=== PATIENT | male | born 1980 | race Caucasian/White ===

== ENCOUNTER 2019-11-28 18:49 | Inpatient (IN) | payer OTHER ==
[2019-11-28] VITALS (70 sets, daily range): BP systolic 158–172; BP diastolic 100–117; PULSE 76–78; TEMP 97.9–98.3; O2SAT 94–100
[~2019-11-28] VITALS: Ht 177.8 cm; Wt 130.2 kg
[~2019-11-28 18:49] MED LIST: ALDACTONE 25MG25 M1 PO; AZO-STANDARD95 MG PO; COREG 25MG25 MG/TAB PO; DEMADEX 20MG20 M1 PO; DESENEX21 TP; K-DUR20 MEQ PO; LASIX 20MG TABL20 MG PO; NORCO 325 MG-51 TAB PO; NORMODYNE200 MG PO; PROAIR HFA0.09 MG/AC IH; TYLENOL 8 HR PO; ZESTRIL 20MG TA20 MG PO
[2019-11-28 19:36] LABS: EOS # 0.1 (0.0-0.7); EOS % 3.4 % (0-4.0); GRAN % 72.1 % (42.2-75.2); HEMATOCRIT 41.3 % (42.0-52.0); HEMOGLOBIN 13.1 g/dl (13.5-18.0); LYMPH # 0.6 (1.2-3.4); LYMPH % 13.7 % (20.0-51.0); MEAN CELL VOLUME 88 fl (80.0-100.0); MEAN CORPUSCULAR HEMOGLOBIN 28 pg (27.0-31.0); MEAN CORPUSCULAR HGB CONC 32 g/dl (33.0-37.0); MEAN PLATELET VOLUME 10.2 fl (7.4-10.4); MONO # 0.4 (0.1-0.6); MONO % 9.6 % (1.7-9.3); PLATELET COUNT 202 K/mm3 (130-400); RED BLOOD COUNT 4.69 M/mm3 (4.20-5.60)
[2019-11-28 20:00] LABS: ALBUMIN 3.2 gm/dL (3.5-5.0); C-REACTIVE PROTEIN 1.5 mg/dL (0.0-0.9); CALCIUM 8.5 mg/dL (8.4-10.2); CREATININE, serum 2.49 (0.66-1.25); POTASSIUM 3.4 mmol/L (3.4-5.0); TOTAL PROTEIN 6.7 gm/dL (6.4-8.2)
[2019-11-28 20:17] LABS: COLLECTION METHOD CLEAN CATCH
[2019-11-28 20:25] LABS: TROPONIN-I 0.102 ng/mL (0.000-0.035)
[2019-11-28 20:26] LABS: MUCOUS Present /lpf; PH 6 (5-8); SQUAMOUS EPITHELIAL 0-2 /hpf; URINE APPEARANCE Clear; URINE BACTERIA Rare /hpf; URINE BILIRUBIN Negative (NEGATIVE); URINE BLOOD 3+ (NEGATIVE); URINE COLOR Yellow; URINE GLUCOSE 1+ (NEGATIVE); URINE KETONE Negative (NEGATIVE); URINE LEUKOCYTE ESTERASE Negative (NEGATIVE); URINE NITRATE Negative (NEGATIVE); URINE PROTEIN(semi-quant) 2+ (NEGATIVE); URINE RBC >50 /hpf; URINE UROBILINOGEN Negative (NEGATIVE)
--- NOTE | 2019-11-28 21:52 | NUR ---
Patient arrives to [facility] room 16 via ED stretcher. Patient ambulates well with SBA to [facility] bed using his cane. Initial BP 172/117 with HR of 75; other vitals within normal limits. Patient denies any chest pain or SOB; however, he reports 9/10 back pain, of which he experiences on a chronic basis. Patient arrives with Nitro infusing to the left forearm at 30 mcg/min (9mL/hr). Bilateral lower extremeties are edematous although pedal and post tibial pulses are 2+. Spots of red discoloration noted throughout legs and abdomen. A scratch is noted to the upper right back/shoulder area. Patient is unable to lift chin above a 50-60 degree angle; he reports having slept wrong several weeks ago and has been unable to lift head adequately since. A curvature/lump noted on the back of neck; no discoloration or irritation noted. Belinda aware of patient's arrival. Will continue to monitor.
[2019-11-28] MEDS ORDERED: TYLENOL 325MG325 MG PO (22:28)
[2019-11-28] MEDS ORDERED: TYLENOL 8 HR PO (22:30)
[2019-11-28] MEDS ORDERED: ALEVE 220MG220 MG PO (22:31)
[2019-11-28] MEDS ORDERED: ASPIRIN 32325 MG/TAB PO (22:34)
[2019-11-28 23:10] LABS: MAGNESIUM 2.3 mg/dL (1.6-2.3); PHOSPHOROUS 4.7 mg/dL (2.5-4.5)
--- NOTE | 2019-11-28 23:15 | NUR ---
Notified Dr. Nguyen of patient's bumped troponin. Will not continue to trend troponins per his directions. Will continue to monitor.
[2019-11-28 23:41] LABS: THYROID STIMULATING HORMONE 2.77 uIU/mL (0.465-4.680)
[2019-11-29] VITALS (87 sets, daily range): BP systolic 145–172; BP diastolic 99–171; PULSE 28–78; TEMP 97.1–97.9; O2SAT 90–100
--- NOTE | 2019-11-29 05:30 | NUR ---
Notified Belinda of patient's complaints of nausea and two episodes of vomiting. Phenergan ordered. Will continue to monitor.
--- NOTE | 2019-11-29 06:02 | NUR ---
Spoke with Belinda following patient's morning EKG. Significant changes noted in EKG; she notified Patrick, who requested we trend troponins. Lab notified.
[2019-11-29 06:41] LABS: BASO % 0.8 % (0.0-2.0); EOS # 0.2 (0.0-0.7); EOS % 4.3 % (0-4.0); GRAN # 2.7 (1.4-6.5); HEMATOCRIT 36.6 % (42.0-52.0); HEMOGLOBIN 11.6 g/dl (13.5-18.0); LYMPH # 0.5 (1.2-3.4); LYMPH % 14.2 % (20.0-51.0); MEAN CELL VOLUME 88 fl (80.0-100.0); MEAN CORPUSCULAR HEMOGLOBIN 28 pg (27.0-31.0); MEAN CORPUSCULAR HGB CONC 32 g/dl (33.0-37.0); MEAN PLATELET VOLUME 10.3 fl (7.4-10.4); MONO # 0.4 (0.1-0.6); MONO % 9.4 % (1.7-9.3); PLATELET COUNT 194 K/mm3 (130-400); RED BLOOD COUNT 4.18 M/mm3 (4.20-5.60); REDCELL DISTRIBUTION WIDTH-CV 15.9 % (11.5-14.5)
[2019-11-29 07:01] LABS: CALCIUM 8.2 mg/dL (8.4-10.2); CHOLESTEROL RISK RATIO 3.4; CREATININE, serum 2.55 (0.66-1.25); POTASSIUM 3.1 mmol/L (3.4-5.0)
[2019-11-29 07:19] LABS: TROPONIN-I 0.108 ng/mL (0.000-0.035)
--- NOTE | 2019-11-29 09:29 | NUR ---
Pt assessment complete. Pt is sitting up in bed sleeping, keeps his eyes closed during examination and does not speak to staff at this time. VSS. Pt does not appear to be in any distress, breathing is even and unlabored on RA. Nitro drip infusing without complications. No needs at this time. Call light within reach. Isolation precautions in place for MRSA, lab confirmed positive MRSA swab on the phone.
--- NOTE | 2019-11-29 11:51 | NUR ---
Pt refusing to wake up to take pills. Will arouse but not open eyes and says "just a minute". Follows commands such as lifting leg and squeezing hands but will not arouse to speak with staff or take medications. Will reattempt at later time.
--- NOTE | 2019-11-29 14:20 | NUR ---
Pt agreed to take pills, reports LINDSAY. Tylenol PRN administered.
[2019-11-29 15:07] LABS: URINE PROTEIN:CREAT RATIO 1.63 (0.00-0.14)
--- NOTE | 2019-11-29 16:13 | NUR ---
MITZI met at the patient's door to discuss discharge plan. The patient did not have access to room phone and is on MRSA precautions. The patient lives alone in [place]. He reports independence with ADLs and has a cane. The patient does not have a PCP or health insurance. The patient was agreeable to getting set up at the [facility] in [place]. He receives his medications at [facility] in [place]. He reports that he was recently approved for disability and will get $900 a month, starting this month. He reports that he will not have difficulties affording meds now. Financial Counseling has been consulted and plan to do a Medicaid application with him. The patient does not have advanced directives completed. He is not and does not have any children. He states that his mother is his next of kin. His mother, Hagn, lives at [facility]. He states that his father and only sibling have . The patient plans to return home upon discharge. MITZI to set the patient up with an appointment at [facility] in [place] and will need to jauregui his meds prior to discharge. MITZI to continue to follow.
--- NOTE | 2019-11-29 18:30 | NUR ---
Pt's SBP 150's, and patient complaining of persistent LINDSAY. Nitro drip decreased to 9mls/hr. POC discussed with patient. Will continue to monitor.
--- NOTE | 2019-11-29 19:05 | NUR ---
RECEIVED REPORT FROM DEREK WOOD. PT REQUESTING TO USE RESTROOM AT THIS TIME. PT ABLE TO AMBUALTE INDEPENDENTLY WITH CANE TO TOILET. STEADY GAIT NOTED. VSS.
--- NOTE | 2019-11-29 22:44 | NUR ---
AFTER ATTEMPTS TO HELP MAKE PT COMFORTABLE, PT CONTINUES TO C/O CHEST PAIN THAT IS "CRUSHING AND IS HARD TO BREATHE" AND POINTS TO HIS MID STERNAL CHEST AREA. BP NOTED TO BE 168/126. HR IN THE 80s, POX 95% ON RA. DR MCADAMS NOTIFIED OF ATTEMPTS TO HELP CALM PT FOR POSSIBEL ANXIETY BUT PT IS COMPLAINING OF MORE CHEST DISCOMFORT THAT IS A CRUSHING FEELING AND CURRENT VS. DR MCADAMS STATES THAT AN EKG NEEDS TO BE OBTAINED AND TO CONTACT ATTENDING PHYSICIAN IF THIS IS NOT CARDIAC RELATED. RT CALLED TO BEDSIDE TO OBTAIN EKG. PT IS NOW SITTING ON THE SIDE OF THE BED AND IS REQUESTED TO LIE BACK IN BED FOR BETTER POSITIONING OF PROCEDURE. PT BECOMES AGGRESSIVE AND YELLS AT RN AND RT LUIS TO "GET THE FUCK OUT. IF YOU WON'T JUST LEAVE ME BE THEN I WILL WALK THE FUCK OUT OF HERE." PT PULLS OFF TELEMTRY LEADS AND BLOOD PRESSURE MONITOR. ATTEMPTS MADE TO CALM PT, UNSUCCESSFUL, CALLED POLITICAL RESEARCHER TO BEDSIDE, SEE NOTE. STAFF WALKS AWAY FROM PT TO LET HIM COOL DOWN AND SINCE HE IS BEING AGGRESSIVE AND REFUSING TREATMENT AFTER MULTIPLE ATTEMPTS BY RN AND POLITICAL RESEARCHER EXPLAINING THE IMPORTANCE OF DELAYING TREATMENT IF HE WAS TRULY HAVING A CARDIAC EVENT. PT DID NOT CARE AND YELLED TO BE LEFT ALONE.
--- NOTE | 2019-11-29 22:53 | NUR ---
Called into room by DEREK Morrow, as patient is stating he is "having pressure on his chest and he can't breath." Discussed with patient importance of laying back in bed so we could obtain an EKG to evaluate his cardiac function and if he was having a heart attack. Patient stated loudly "to back the fuck off, I don't need this!" Informed patient of risks of delaying treatment, patient declining all diagnostics and care at this time. Patient stated he understood risk and did not want anything further at this time. Will have Odalys continue to monitor.
--- NOTE | 2019-11-29 23:15 | NUR ---
RN OVER HEARS PT CALL MOTHER'S DETENTION STAFF TO TELL THEM TO HAVE HIS MOTHER NOT CALL HIM ANYMORE UNLESS HE CALLS HER AND THAT SHE IS COMING HIM TO HAVE A PANIC ATTACK. AFTER PT GETS OFF OF THE PHONE REQUESTS TO SEE RN. PT STATES HE IS WILLING TO LIE BACK IN BED AND PUT TELEMTRY BACK ON AND HAVE EKG DONE. RTLUIS NOTIFIED AND EKG OBTAINED. NOTED NO CHANGES SINCE EKG THIS AM. AT 2330, NILSA MCCONNELL NOTIFIED OF SITUATION AND WHAT RN WAS TOLD BY DR MCADAMS. NILSA MCCONNELL AGREES THAT THIS MAY BE ANXIETY RELATED AFTER GUT DROPPER HAS ALREADY BEEN MADE AWARE, SEE MAR FOR NEW ORDERS OF MEDICATION GIVEN. PT APPEARS CALMER NOW AND IS COOPERATIVE WITH CARE. PT IS APOLOGETIC TO RN AND RT STAFF. VSS. PT STATES HIS CHEST DISCOMFORT HAS SUBSIDED AT THIS TIME. WILL CONTINUE TO MONITOR CLOSELY. CALL LIGHT WITHIN REACH.
[2019-11-30] VITALS (24 sets, daily range): BP systolic 147–228; BP diastolic 77–153; PULSE 70–92; TEMP 97.5–98.5
--- NOTE | 2019-11-30 00:05 | NUR ---
DR DIXON CALLS RN BACK AND NOTIFIED OF NO CHANGE IN EKG AND CURRENT VS. PHYSICIAN STATES APPEARS PT IS STABLE NOW AND TO CONTINUE TO MONITOR CLOSELY.
--- NOTE | 2019-11-30 00:51 | NUR ---
THIS RT WAS CALLED BY DEREK ROMERO TO DO AN EKG ON PT BECAUSE THEY WERE HAD A CRUSHING FEELING IN THEIR CHEST. HOWEVER, PT WAS AGITATED AND DID NOT WANT ANYONE TO DO ANY TESTS ON HIM AT THIS TIME. THEREFORE THIS RT DID NOT PERFORM THE EKG AT THE TIME IT WAS ORDERED 2243, EKG WAS DONE AT 2314 ONCE PT WAS WILLING TO COOPERATE
--- NOTE | 2019-11-30 03:40 | NUR ---
PT CALLS RN TO BEDSIDE AND STATES HE FEELS VERY NAUSEOUS, PT STARTS DRY HEAVING AND SPITTING UP SOME. SEE MAR. PT ABLE TO CALM SELF AFTER A FEW MINUTES. VSS. CALL LIGHT WITHIN REACH.
--- NOTE | 2019-11-30 06:17 | NUR ---
LAB AND RN TO BEDSIDE TO WAKE PT UP TO GET MORNING LAB DRAWN. RN MAKES MULTIPLE ATTEMPTS TO TRY AND WAKE PT UP BY TOUCHING HIS ARM LIGHTLY AND TALKING LOUDLY TO GET HIM TO OPEN HIS EYES. PT DOES NOT MOVE MUCH BESIDES MOAN OCCASSIONALY. INFORMED PT IF HE DOES NOT OPEN HIS EYES PRESSURE POINTS WILL BE CHECKED. FINGER NAIL PRESSURE APPLIED. PT COMES OUT OF BED SWINGING ARMS AND SCREAMING AT NURSE. RN INFORMS PT THAT R/T HIS PRESSURES GETTING SO HIGH EARLIER, HE NEEDS TO RESPOND TO THE NURSE TO CHECK NEURO STATUS IN CASE OF A STROKE. PT STATES "DON'T WAKE ME UP ABRUPTLY. JUST LET ME HAVE A STROKE." PT REFUSES LABS TO BE DRAWN AT THIS TIME. PULLS HIS BLANKETS UP AND YELLS AT THE NURSE AND BUDDER TO GET OUT. CALL LIGHT WITHIN REACH.
--- NOTE | 2019-11-30 07:30 | NUR ---
ANNMARIE Mcgee called regarding elevated: BP and Nitro. gtt infusing near maximum dose; nausea and vomiting; refusal of morning lab draw; anxiety; refusal to wear SpO2 monitoring and occasional refusal to wear BP cuff.
--- NOTE | 2019-11-30 08:00 | NUR ---
DONNA Mcgee in room with pt
--- NOTE | 2019-11-30 08:45 | NUR ---
Pt taken to Radiology dept for Head CT - once in room pt refusing to get fully positioned CT Bed. Pt states "I need to be sedated completely before I am getting in there, there is no way. At this point I would rather just than keep doing all these test you all want". MD Mirna notified and on unit upon arrival back to [facility]. Lacquerer in room to perform renal ultrasound - pt refused - stating "I wont be able to lay flat" MD Mirna on still and notified
--- NOTE | 2019-11-30 10:30 | NUR ---
Breakfast Hostess unable and unwilling to perform venipuncture sucessfully d/t pt jumping upon needle insertion - pt educated regarding saftey of staff members with sharps and that labs will not be able to completed if pt's actions pose a risk to staff. Pt demonstrating exasperation but agrees and willing to try again with different admin secretary.
--- NOTE | 2019-11-30 11:00 | NUR ---
Loan Operations Manager able to sucessfully obtain blood sample without difficulties
--- NOTE | 2019-11-30 11:12 | NUR ---
MITZI contacted Kayla at [facility] and secured the patient and appointment on Tuesday, 12/04, at 1520. MITZI faxed the patient's records to Kayla at [facility] in [place]. MITZI to inform the patient's RN of appointment. MITZI to continue to follow.
[2019-11-30 11:14] LABS: BASO # 0.1 (0.0-0.2); BASO % 0.9 % (0.0-2.0); EOS # 0.2 (0.0-0.7); EOS % 3.1 % (0-4.0); GRAN # 4.7 (1.4-6.5); GRAN % 79.9 % (42.2-75.2); HEMATOCRIT 39.8 % (42.0-52.0); HEMOGLOBIN 12.7 g/dl (13.5-18.0); LYMPH # 0.5 (1.2-3.4); LYMPH % 8.8 % (20.0-51.0); MEAN CELL VOLUME 88 fl (80.0-100.0); MEAN CORPUSCULAR HEMOGLOBIN 28 pg (27.0-31.0); MEAN CORPUSCULAR HGB CONC 32 g/dl (33.0-37.0); MEAN PLATELET VOLUME 10.7 fl (7.4-10.4); MONO # 0.4 (0.1-0.6); PLATELET COUNT 253 K/mm3 (130-400); RED BLOOD COUNT 4.55 M/mm3 (4.20-5.60); REDCELL DISTRIBUTION WIDTH-CV 15.9 % (11.5-14.5)
[2019-11-30 11:17] LABS: CALCIUM 8.3 mg/dL (8.4-10.2); CREATININE, serum 2.58 (0.66-1.25); POTASSIUM 3.3 mmol/L (3.4-5.0)
--- NOTE | 2019-11-30 22:36 | NUR ---
BP CUFF AT FOREARM, THIS RN OFFERED TO RAPLACE IT WITH BIGGER CUFF TO BE PUT ON UPPER ARM IT IS MORE ACCURATE, PT REFUSED AND VERBALIZED "DOCTOR ALREADY SAID THAT THIS IS BETTER." PT THEN WANTED TO BE LEFT ALONE TO SLEEP.
[2019-12-01] VITALS (12 sets, daily range): BP systolic 157–214; BP diastolic 77–127; PULSE 77–90; TEMP 97.8–98.5; O2SAT 97
--- NOTE | 2019-12-01 00:28 | NUR ---
pt requesting some imodium as he had bm 2x for this shift. as per pt, it was watery and loose. this RN has not personally seen it as pt flushed it already. ANNMARIE Trevino notified and orders for stool sample to be checked for c diff.
--- NOTE | 2019-12-01 01:46 | NUR ---
this RN heard a loud noise while charting outside of room 16. As I check pt on room, pt about to go to toilet and was asked if he is okay, pt replied "I just don't care about that stupid damn hat!" when explained while we need the stool sample pt verbalized "I don't care!" and was pretty agitated and this RN closed pt's door to give some privacy to pt.
[2019-12-01 07:08] LABS: BASO % 0.6 % (0.0-2.0); EOS # 0.4 (0.0-0.7); EOS % 5.4 % (0-4.0); GRAN # 4.7 (1.4-6.5); GRAN % 72.6 % (42.2-75.2); HEMOGLOBIN 12.9 g/dl (13.5-18.0); LYMPH # 0.7 (1.2-3.4); LYMPH % 10.5 % (20.0-51.0); MEAN CELL VOLUME 87 fl (80.0-100.0); MEAN CORPUSCULAR HEMOGLOBIN 28 pg (27.0-31.0); MEAN CORPUSCULAR HGB CONC 32 g/dl (33.0-37.0); MEAN PLATELET VOLUME 10.6 fl (7.4-10.4); MONO # 0.7 (0.1-0.6); MONO % 10.6 % (1.7-9.3); PLATELET COUNT 284 K/mm3 (130-400); RED BLOOD COUNT 4.58 M/mm3 (4.20-5.60); REDCELL DISTRIBUTION WIDTH-CV 16.1 % (11.5-14.5)
[2019-12-01 07:19] LABS: CALCIUM 8.6 mg/dL (8.4-10.2); CREATININE, serum 2.58 (0.66-1.25); POTASSIUM 3.6 mmol/L (3.4-5.0)
--- NOTE | 2019-12-01 07:27 | NUR ---
REPORT GIVEN TO DEREK BILLS.
[2019-12-02] VITALS (25 sets, daily range): BP systolic 138–193; BP diastolic 85–121; PULSE 76–98; TEMP 97.7–99.1
--- NOTE | 2019-12-02 05:26 | NUR ---
PT'S BP AT HAVE JD MOSTLY AT 170'S - 180'S. THERE ARE COUPLE OCCASIONS THAT IT WAS 190'S, PRN HYDRALAZINE GIVEN WITH GOOD RESPONSE LOWERING BP AT 160'S, BUT OVERTIME, WILL SLOWLY GET BACK TO 180-190'S. PT ON MAX NITRO AT 100 MCG/MIN FOR THIS ENTIRE SHIFT. WILL PASS THIS ALONG TO DAY SHIFT NURSE.
[2019-12-02 06:30] LABS: BASO % 0.6 % (0.0-2.0); EOS # 0.4 (0.0-0.7); EOS % 6.2 % (0-4.0); GRAN # 4.8 (1.4-6.5); GRAN % 72.1 % (42.2-75.2); HEMOGLOBIN 12.4 g/dl (13.5-18.0); LYMPH # 0.6 (1.2-3.4); LYMPH % 8.7 % (20.0-51.0); MEAN CELL VOLUME 87 fl (80.0-100.0); MEAN CORPUSCULAR HEMOGLOBIN 28 pg (27.0-31.0); MEAN CORPUSCULAR HGB CONC 32 g/dl (33.0-37.0); MEAN PLATELET VOLUME 10.6 fl (7.4-10.4); MONO # 0.8 (0.1-0.6); MONO % 12.2 % (1.7-9.3); PLATELET COUNT 268 K/mm3 (130-400); RED BLOOD COUNT 4.47 M/mm3 (4.20-5.60); REDCELL DISTRIBUTION WIDTH-CV 16.2 % (11.5-14.5)
[2019-12-02 06:48] LABS: ALBUMIN 3.1 gm/dL (3.5-5.0); BILIRUBIN,TOTAL 1.7 mg/dL (0.0-1.0); CALCIUM 8.4 mg/dL (8.4-10.2); CREATININE, serum 2.13 (0.66-1.25); POTASSIUM 3.6 mmol/L (3.4-5.0); TOTAL PROTEIN 6.6 gm/dL (6.4-8.2)
--- NOTE | 2019-12-02 07:29 | NUR ---
REPORT GIVENT TO DEREK MOSS.
--- NOTE | 2019-12-02 16:00 | NUR ---
ASKED PT TO TAKE PO ANTIHYPERTENSIVE MEDS. MEDS ON BEDSIDE TABLE IN A CUP. PT NODS HIS HEAD YES. 1630 I RETURNED TO CHECK ON PATIENT AND HE HAD NOT YET TAKEN HIS BP MEDS. I ASKED HIM AGAIN IF HE WOULD PLS TAKE HIS BP MEDS. PT DID NOT RESPOND TO ME. 1700 WENT IN TO GIVE PT HIS 1700 SCHEDULED BP MEDS AND HE HAD STILL NOT TAKEN HIS BP MEDS. I ASKED THE PATIENT WHY HE HAD NOT TAKEN HIS MEDS YET AND HE SAID "BECAUSE I WAS SLEEPING". PATIENT WAS AWAKE WITH HIS EYES OPEN BOTH TIMES I HAD ASKED PATIENT TO TAKE HIS MEDICATIONS. PATIENT FINALLY TOOK HIS BP MEDS AFTER 1700 WITH HIS OTHER BP MEDS.
--- NOTE | 2019-12-02 17:26 | NUR ---
ATTEMPTED TO CALL REPORT TO SURGICAL UNIT. NURSE STATES SHE WILL HAVE TO CALL ME BACK
--- NOTE | 2019-12-02 18:12 | NUR ---
REPORT GIVEN TO COTY REED. PT REQUESTS TO EAT DINNER PRIOR TO TRANSFER.
--- NOTE | 2019-12-02 18:38 | NUR ---
PT TRANSFERRED VIA WHEELCHAIR TO SURGICAL ROOM 342. PT'S BELONGINGS TRANSFERRED WITH PATIENT. CONTACT MADE WITH COTY REED UPON TRANSFER.
--- NOTE | 2019-12-02 21:03 | NUR ---
PT SITTING AT WINDOW SEAT, A/O X4. PT HAS SOME PAIN IN LOWER BACK AND BILATERAL KNEES HURTING 10/10, THAT IS THROBING. NO OTHER CONCERNS AT THIS TIME, CALL LIGHT WITHIN REACH.
[2019-12-03] VITALS (7 sets, daily range): BP systolic 156–176; BP diastolic 83–104; PULSE 83–91; TEMP 98.6–99.1
--- NOTE | 2019-12-03 03:07 | NUR ---
PT HAS BEEN AWAKE MOST OF THE NIGHT. PT AMBULATES IN ROOM USING CANE. PT DENIES PAIN OR DISCOMFORT AT THIS TIME, NO NEEDS, CALL LIGHT WITHIN REACH.
--- NOTE | 2019-12-03 06:15 | NUR ---
PT REFUSED LASIX AT THIS TIME, BECAUSE HE DID NOT SLEEP WELL AND WANTS TO TRY AND GET SOME SLEEP BEFORE HE GETS THE LASIX. NO C/O PAIN OR DISCOMFORT AT THIS TIME. CALL LIGHT WITHIN REACH.
[2019-12-03 06:29] LABS: BASO % 0.8 % (0.0-2.0); EOS # 0.4 (0.0-0.7); GRAN # 3.1 (1.4-6.5); HEMATOCRIT 41.2 % (42.0-52.0); HEMOGLOBIN 12.9 g/dl (13.5-18.0); LYMPH # 0.7 (1.2-3.4); LYMPH % 14.3 % (20.0-51.0); MEAN CELL VOLUME 89 fl (80.0-100.0); MEAN CORPUSCULAR HEMOGLOBIN 28 pg (27.0-31.0); MEAN CORPUSCULAR HGB CONC 31 g/dl (33.0-37.0); MEAN PLATELET VOLUME 10.4 fl (7.4-10.4); MONO # 0.7 (0.1-0.6); MONO % 14.7 % (1.7-9.3); PLATELET COUNT 234 K/mm3 (130-400); RED BLOOD COUNT 4.65 M/mm3 (4.20-5.60); REDCELL DISTRIBUTION WIDTH-CV 16.2 % (11.5-14.5)
[2019-12-03 07:02] LABS: ALBUMIN 3.2 gm/dL (3.5-5.0); BILIRUBIN,TOTAL 1.4 mg/dL (0.0-1.0); CALCIUM 8.5 mg/dL (8.4-10.2); CREATININE, serum 2.14 (0.66-1.25); MAGNESIUM 2.2 mg/dL (1.6-2.3); POTASSIUM 3.9 mmol/L (3.4-5.0); TOTAL PROTEIN 6.8 gm/dL (6.4-8.2)
--- NOTE | 2019-12-03 07:43 | NUR ---
Sitting up in chair with eyes open. Rates pain 10/10, chronic in back and knees. 2+ bilat LE edema noted. Patient denies further needs at this time.
--- NOTE | 2019-12-03 17:16 | NUR ---
Attempt to give patient his evening meds. Patient with eyes shut in bed. Attempt to wake and he will not move. Respirations are even and unlabored. Shake patient to try to wake him and he attempts several times to hit this nurse. Explain that I have his meds and his dinner is here also and patient will not open eyes. Notice when I turn my back and turn back around patient has eyes open and as soon as I turn back around he closes eyes. Meds not administered at this time.
--- NOTE | 2019-12-03 17:18 | NUR ---
Dr. Rodriguez in room. Patient opens eyes without difficulty when Dr. Rodriguez talks. Dr. Rodriguez attempts to talk with the patient and patient says that he cannot talk at this time he has to go to the bathroom.
--- NOTE | 2019-12-03 18:00 | NUR ---
Patient requested to shower. MARTINA Chaney, provides patient with towels and personal supplies to get in shower.
--- NOTE | 2019-12-03 19:30 | NUR ---
PATIENT RESTING IN BED DURING CHANGE OF SHIFT REPORT FROM DAY SHIFT NURSEZHANE. PATIENT UP INDEPENDENTLY IN ROOM WITH NO PROBLEMS.
--- NOTE | 2019-12-03 22:35 | NUR ---
PATIENT AGREED TO TAKE SCHEDULED MEDS, REQUESTED AND GIVEN PAIN MED FOR C/O DESTINEE KNEE PAIN. UP INDEPENDENTLY IN ROOM.
--- NOTE | 2019-12-03 22:45 | NUR ---
PATIENT REQUESTED, GIVEN 350 ML OF ICE & SPRITE. UP IN CHAIR WITH NO OTHER NEEDS REPORTED.
--- NOTE | 2019-12-04 01:31 | NUR ---
PATIENT LOOKING AT SMART PHONE, WITH LIGHT OFF IN ROOM. UP INDEPENDENTLY IN ROOM. CONTACT ISOLATION CONTINUES.
[2019-12-04 04:18] VITALS: BP 174/104; PULSE 58; TEMP 98.9
--- NOTE | 2019-12-04 06:20 | NUR ---
SEE eMAR FOR PAIN MED GIVEN FOR C/O OF 10/10 FRONTAL HEADACHE THAT PATIENT STATES HE GETS WHEN HE IS GIVEN IV LASIX. NO OTHER NEEDS REPORTED.
--- NOTE | 2019-12-04 07:21 | NUR ---
PATIENT RESTING IN BED DURING CHANGE OF SHIFT REPORT GIVEN TO DAY SHIFT NURSE, ADONIS. PATIENT INFORMED OF STOOL SPECIMEN NEEDED, HAT PLACED IN BATHROOM FOR SPECIMEN COLLECTION. NO OTHER NEEDS REPORTED.
[2019-12-04 07:31] LABS: CALCIUM 8.8 mg/dL (8.4-10.2); CREATININE, serum 2.07 (0.66-1.25); POTASSIUM 4.3 mmol/L (3.4-5.0)
[2019-12-04 10:37] VITALS: BP 168/102; PULSE 85; TEMP 98.4
--- NOTE | 2019-12-04 11:30 | NUR ---
Patient did not want to take his medications early this morning. Discussed his blood pressure and getting it checked but he refused that this morning as well. He finally agreed to take the pills and let me check his vitals around 1030. Patient has been up in the room on his own. He is not able to go further than that. He stated his pain is tolerable if he doesn't walk to far. No complaints of nausea, tolerating regular food without problems. HIs blood pressue was high with vital sign machine, manual BP done but still high. Explained how important taking his medicatons everyday at the same time helps control his blood pressure. No other changes at this time. Call light within reach.
[2019-12-04 11:32] LABS: CLOSTRIDIUM DIFF A/B NEG; CLOSTRIDIUM DIFF A/B INTERP No C.diff present
--- NOTE | 2019-12-04 12:49 | NUR ---
SW contacted the patient in his room via telephone to revisit the discharge plan. The patient will still be going home. PT/OT is recommending home. The patient was supposed to have an appointment 12/04 at [facility] but he cancelled it. MITZI will reschedule it once a discharge date is set. Will continue to monitor.
[2019-12-04 12:58] VITALS: BP 166/98; PULSE 82; TEMP 98.4
[2019-12-04 18:40] VITALS: BP 180/104; PULSE 83; TEMP 98.9
--- NOTE | 2019-12-04 19:00 | NUR ---
PATIENT UP INDEPENDENTLY IN ROOM, SITTING AT SIDE OF BED DURING CHANGE OF SHIFT REPORT FROM DAY SHIFT NURSE, ADONIS. PATIENT CONTINUES IN CONTACT ISOLATION FOR MRSA. NO NEEDS REPORTED AT TIME OF REPORT. TELE IN PLACE.
--- NOTE | 2019-12-04 19:00 | NUR ---
Patients blood pressure is elevated again. He has been taking hes medications today. He denies feeling any headaches or other symptoms. Giving him his medications for BP as scheduled at this time. Patient has been moving in the room well. No other changes at this time. Call light within reach.
--- NOTE | 2019-12-04 20:00 | NUR ---
REPORTS REDNESS ACROSS MID ABD IS NORMAL FOR PATIENT AND DOES NOT TREAT AREA WITH ANY MEDICATIONS. OBSERVED ABRASIONS ACROSS RIGHT ANTECUTIBAL AREA (FROM BP CUFF), NONDRAINING AND DRY, CLEANED AREA WITH BETADINE AND APPLIED MEDIUM SIZED TEGADERM
--- NOTE | 2019-12-04 23:23 | NUR ---
PATIENT SHOWERED WITH NO PROBLEMS, IV SITE COVERED WITH PLASTIC, TELE INFORMED PATIENT IS OFF MONITOR FOR SHOWER.
[2019-12-05 00:32] VITALS: BP 147/74; PULSE 75; TEMP 98.6
--- NOTE | 2019-12-05 02:00 | NUR ---
PATIENT UP INDEPENDENTLY IN ROOM, DENIES ANY NEEDS AT THIS TIME. TELE IN PLACE.
[2019-12-05 05:29] VITALS: BP 166/99; PULSE 80; TEMP 98.4
[2019-12-05 07:08] VITALS: BP 194/111; PULSE 78; TEMP 98
[2019-12-05 07:23] LABS: CALCIUM 8.8 mg/dL (8.4-10.2); CREATININE, serum 2.23 (0.66-1.25); MAGNESIUM 2.1 mg/dL (1.6-2.3); POTASSIUM 3.7 mmol/L (3.4-5.0)
--- NOTE | 2019-12-05 07:30 | NUR ---
PATIENT RESTING IN BED DURING CHANGE OF SHIFT REPORT GIVEN TO DAY SHIFT NURSEZHANE. PATIENT UP INDEPENDENTLY IN ROOM, TELE IN PLACE.
--- NOTE | 2019-12-05 07:41 | NUR ---
Sitting up in chair. Rates pain as manageable 6/10, headache. Morning meds administered at this time. Patient declines further needs.
[2019-12-05 08:53] VITALS: BP 152/79; PULSE 75
--- NOTE | 2019-12-05 11:01 | NUR ---
Lying in bed with eyes closed. Respirations even and unlabored. No signs or symptoms of discomfort noted at this time.
[2019-12-05 11:20] VITALS: BP 138/89; PULSE 74; TEMP 97.6
--- NOTE | 2019-12-05 11:25 | NUR ---
ecclesiastical worker contacted [place] at [facility] and confirmed that patient's mother is a resident on skilled care and can remain there if that is what patient and his mother decide.
[2019-12-05] MEDS ORDERED: IMDUR 30MG30 MG/TAB PO (11:50)
[2019-12-05] MEDS ORDERED: COREG 25MG25 MG/TAB PO (11:50)
[2019-12-05] MEDS ORDERED: ZESTRIL40 MG PO (11:51)
[2019-12-05] MEDS ORDERED: ALDACTONE 25MG25 M1 PO (11:51)
[2019-12-05] MEDS ORDERED: APRESOLINE50 MG PO (11:52)
[2019-12-05] MEDS ORDERED: LASIX 80MG TABL80 MG PO (11:54)
--- NOTE | 2019-12-05 12:40 | NUR ---
The patient is to tentatively discharge home today, 12/04. The patient's medications will total $76 and he states he will be able to pay for them. MITZI set up a follow up appointment with [facility] in [place] for the patient on 12/06 at 12:20. MITZI provided the [facility] Registration packe to the patient. Norma with finance to call patient to do Medicaid application. The patient is aware and waiting for the call. MITZI discussed concerns with the patient he has about his mother. The patient states that he told his mother to "transfer herself to middle or intermediate school principal care" at [facility]. The patient states that he told the Adult Protective Services a long time ago that he was "washing his hands of her" and that is his "no longer involved" with her care. The patient will drive himself home. There are no additonal needs at this time.
--- NOTE | 2019-12-05 13:05 | NUR ---
Patient is going to drive self home as his vehicle is here and he has no one else to drive him. Reviewed all discharge instructions with the patient. Questions answered. Patient verbalizes understanding and signs all documents. Discharge and CHF packets provided to the patient. Patient is waiting on medical records to bring up some paperwork before he can leave. Once they bring him the paperwork he will use call light to let us know he is ready to go out by wheelchair to [facility].
--- NOTE | 2019-12-05 13:24 | NUR ---
Patient ready to be taken to POV. Patient has all personal belongings. Patient taken out to POV via wheelchair by MARTINA Camp. Patient voices no further needs or concerns.
== END 2019-12-05 13:25 | disposition home or self-care (01) | DRG 280 ==
LOC: COL.ER 18:49 → SURG 20:32 → EU 20:32 → IMCU 22:07 → SURG 12-02 19:29
PROVIDERS: Emergency Medicine; Nurse Practitioner Family; Physician Assistant; Student in an Organized Health Care Education/Training Program; ADMIT Student in an Organized Health Care Education/Training Program
DX: I13.0 Hypertensive heart and chronic kidney disease with heart failure and stage 1 through stage 4 chronic kidney disease, or unspecified chronic kidney disease (principal); I50.23 Acute on chronic systolic (congestive) heart failure; I21.4 Non-ST elevation (NSTEMI) myocardial infarction; I16.1 Hypertensive emergency; Z68.42 Body mass index [BMI] 45.0-49.9, adult; I27.20 Pulmonary hypertension, unspecified; J45.909 Unspecified asthma, uncomplicated; E66.01 Morbid (severe) obesity due to excess calories; R31.9 Hematuria, unspecified; D72.819 Decreased white blood cell count, unspecified; N18.3 Chronic kidney disease, stage 3 (moderate); M19.90 Unspecified osteoarthritis, unspecified site; M06.9 Rheumatoid arthritis, unspecified; M54.9 Dorsalgia, unspecified; R80.9 Proteinuria, unspecified; F41.0 Panic disorder [episodic paroxysmal anxiety]; E87.6 Hypokalemia; F41.9 Anxiety disorder, unspecified; T50.995A Adverse effect of other drugs, medicaments and biological substances, initial encounter; F32.9 Major depressive disorder, single episode, unspecified; R94.31 Abnormal electrocardiogram [ECG] [EKG]; R55 Syncope and collapse; Z91.14 Patient's other noncompliance with medication regimen; Z79.82 Long term (current) use of aspirin; Z87.891 Personal history of nicotine dependence
CPT/HCPCS: 99223-AI; 99232-AI; 99233-AI; J0360; J1940; J2060; J2550

== ENCOUNTER 2020-10-06 11:05 | Observation (INO) | payer SELFPAY ==
[~2020-10-06] VITALS: Ht 177.8 cm; Wt 126.1 kg
[~2020-10-06 11:05] MED LIST changes: +ALEVE 220MG220 MG PO; +APRESOLINE50 MG PO; +ASPIRIN 32325 MG/TAB PO; +IMDUR 30MG30 MG/TAB PO; +LASIX 80MG TABL80 MG PO; +TYLENOL 325MG325 MG PO; +ZESTRIL40 MG PO
[2020-10-06 11:27] LABS: COLLECTION METHOD CLEAN CATCH
[2020-10-06 11:39] LABS: MUCOUS Present /lpf; PH 7 (5-8); SQUAMOUS EPITHELIAL None Seen /hpf; URINE APPEARANCE Clear; URINE BACTERIA None Seen /hpf; URINE BILIRUBIN Negative (NEGATIVE); URINE BLOOD 2+ (NEGATIVE); URINE COLOR Straw; URINE GLUCOSE Negative (NEGATIVE); URINE KETONE Negative (NEGATIVE); URINE LEUKOCYTE ESTERASE Negative (NEGATIVE); URINE NITRATE Negative (NEGATIVE); URINE PROTEIN(semi-quant) 2+ (NEGATIVE); URINE UROBILINOGEN Negative (NEGATIVE)
[2020-10-06 11:47] LABS: BASO % 0.8 % (0.0-2.0); EOS # 0.2 (0.0-0.7); EOS % 5.3 % (0-4.0); GRAN # 2.8 (1.4-6.5); GRAN % 69.1 % (42.2-75.2); LYMPH # 0.7 (1.2-3.4); LYMPH % 16.9 % (20.0-51.0); MEAN CELL VOLUME 88 fl (80.0-100.0); MEAN CORPUSCULAR HEMOGLOBIN 29 pg (27.0-31.0); MEAN CORPUSCULAR HGB CONC 33 g/dl (33.0-37.0); MONO # 0.3 (0.1-0.6); MONO % 7.6 % (1.7-9.3); PLATELET COUNT 228 K/mm3 (130-400); REDCELL DISTRIBUTION WIDTH-CV 13.5 % (11.5-14.5)
[2020-10-06 11:48] LABS: HEMATOCRIT 36.8 % (42.0-52.0)
[2020-10-06 11:55] LABS: INR 1.1 (0.8-3.0); PROTHROMBIN TIME 12.6 SECONDS (9.7-12.8)
[2020-10-06 11:58] LABS: BILIRUBIN,TOTAL 0.7 mg/dL (0.0-1.0); CREATININE, serum 3.19 (0.66-1.25); POTASSIUM 4.1 mmol/L (3.4-5.0)
[2020-10-06 12:12] LABS: TROPONIN-I 0.066 ng/mL (0.000-0.035)
--- NOTE | 2020-10-06 12:33 | NUR ---
SW received consult. SW met with patient in ED about DNR status. Patient reports that he is a DNR. Patient reports that he does not have any legal paperwork with PCP and has not discussed this option with his primary care. Patient reports that he is a Dnr because he does not have any family or friends and that if he were to there is no need to revive. SW educated patient on DNR status and it not being able to be changed under this circumstance. Educated proper way of adding DNR status. Patient reports that he hates everyone and they hate him. SW offered additonal resources to client to include mental health. Patient declined.
[2020-10-06] MEDS ORDERED: FLEXERIL 1010 MG/TAB PO (12:39)
[2020-10-06] MEDS ORDERED: TYLENOL W/COD1 UDTAB PO (12:40)
[2020-10-06 12:44] VITALS: BP 168/104; PULSE 71
--- NOTE | 2020-10-06 15:58 | NUR ---
NEPHROLOGY CONSULT CALLED TO . MESSAGE LEFT.
--- NOTE | 2020-10-06 16:00 | NUR ---
ANNMARIE BRITO TO SEE PATIENT TOMORROW.
[2020-10-06 16:43] VITALS: BP 199/97; PULSE 71; TEMP 98.7
[2020-10-06 18:34] VITALS: BP 151/83
--- NOTE | 2020-10-06 18:48 | NUR ---
PATIENT GIVEN PRN TYLENOL FOR A HEADACHE. BP'S IMPROVED WITH PO MEDICATION. PATIENT SITTING UP IN BEDSIDE CHAIR. REPORT GIVEN TO NURSE.
--- NOTE | 2020-10-06 19:00 | NUR ---
Received report from Anju. Seen patient awake, sitting in the recliner. Tylenol was given by Anju for his headache. No other needs noted at this time.
[2020-10-06 19:50] VITALS: BP 161/82; PULSE 75; TEMP 98.4
[2020-10-06 23:14] VITALS: BP 161/81; PULSE 76; TEMP 97.6
[2020-10-07 00:48] VITALS: BP 145/88
--- NOTE | 2020-10-07 00:48 | NUR ---
Patient complains of headache, nausea and ringing of the left ear. Patient currently sitting on the side of the bed. BP was 145/88. Informed Nettie THOMPSON via phone call. She went in to see the patient. She ordered Meclizine.
--- NOTE | 2020-10-07 02:02 | NUR ---
Patient awake, sitting in the recliner. He states the nausea is gone but he still have some headache. Updated Nettie via phone call.
--- NOTE | 2020-10-07 03:20 | NUR ---
Called Nettie THOMPSON that patient was having nausea and headache again. He states the Meclizine didn't help and he thinks it makes his nausea worse. He denies ringing of ear. Nettie ordered Pearl and EKG to check for the QTC before giving Zofran. Informed patient regarding plans. He verbalizes understanding.
[2020-10-07 03:27] VITALS: BP 171/94; PULSE 92; TEMP 98.6
[2020-10-07 06:46] LABS: BASO % 0.7 % (0.0-2.0); EOS # 0.2 (0.0-0.7); EOS % 3.3 % (0-4.0); GRAN # 3.4 (1.4-6.5); GRAN % 74.6 % (42.2-75.2); HEMOGLOBIN 11.6 g/dl (13.5-18.0); LYMPH # 0.7 (1.2-3.4); LYMPH % 15.3 % (20.0-51.0); MEAN CELL VOLUME 90 fl (80.0-100.0); MEAN CORPUSCULAR HEMOGLOBIN 29 pg (27.0-31.0); MEAN CORPUSCULAR HGB CONC 33 g/dl (33.0-37.0); MEAN PLATELET VOLUME 10.1 fl (7.4-10.4); MONO # 0.3 (0.1-0.6); MONO % 5.9 % (1.7-9.3); PLATELET COUNT 224 K/mm3 (130-400); RED BLOOD COUNT 3.98 M/mm3 (4.20-5.60); REDCELL DISTRIBUTION WIDTH-CV 13.6 % (11.5-14.5)
[2020-10-07 06:53] LABS: CALCIUM 8.7 mg/dL (8.4-10.2); CREATININE, serum 3.2 (0.66-1.25)
[2020-10-07 06:54] LABS: HEMATOCRIT 35.7 % (42.0-52.0)
[2020-10-07 07:05] LABS: TROPONIN-I 0.073 ng/mL (0.000-0.035)
[2020-10-07 08:50] VITALS: BP 146/87; PULSE 86; TEMP 97.9
--- NOTE | 2020-10-07 09:00 | NUR ---
Patient resting in bedside recliner at this time. Patient is alert and oriented, answers questions appropriately. Patient reports that he still has a headache and is dizzy when he stands, but denies ringing in his ears. VS WNL, administered scheduled medications as ordered. Patient observed ambulating from chair to bed, patient is steady with his cane, and transfers safely. Patient denies further needs, call light within reach.
--- NOTE | 2020-10-07 11:59 | NUR ---
First visit from the frankfurter inspector. No needs right now.
[2020-10-07 12:13] VITALS: BP 147/79; PULSE 70; TEMP 97.7
--- NOTE | 2020-10-07 15:37 | NUR ---
Banquet Set Up Person attempted to meet with patient to complete initial intake. Patient states he does not want to speak with SW at this time and wants to get rest for his procedure tomorrow.
[2020-10-07 16:59] VITALS: BP 133/74; PULSE 70; TEMP 97.9
--- NOTE | 2020-10-07 18:18 | NUR ---
Patient resting in recliner at this time. Patient has begun bowel prep. Patient currently denies needs or pain, call light within reach.
[2020-10-07 18:55] VITALS: BP 148/74; PULSE 73; TEMP 98.2
[2020-10-08 00:57] VITALS: PULSE 70; TEMP 98
[2020-10-08 01:34] VITALS: BP 184/109
[2020-10-08 03:36] VITALS: BP 148/57; PULSE 65; TEMP 97.9
--- NOTE | 2020-10-08 04:28 | NUR ---
PATIENT COMPLETED HIS BOWEL PREP BY 0000 TONIGHT. PATIENT HAS HAD EIGHT BM'S THROUGHOUT THIS SHIFT AND REPORTS THEY ARE YELLOW AND LIQUID. PRN CLONIDINE ADMINISTERED X'S 1 THIS SHIFT DUE TO ELEVATED BLOOD PRESSURE. BLOOD PRESSURE STABLE AT THIS TIME.
--- NOTE | 2020-10-08 08:15 | NUR ---
Patient is back from his procedure. He is drowsy. He's refusing everything at this time, because he is "sleeping." He will not allow lab to do his blood draw. His VS are stable. He keeps asking about drinking, explained needs orders from the doctor. No other changes at this time. Call light within reach.
[2020-10-08 09:58] LABS: BASO % 0.7 % (0.0-2.0); EOS # 0.2 (0.0-0.7); EOS % 5.6 % (0-4.0); GRAN # 1.8 (1.4-6.5); HEMOGLOBIN 10.7 g/dl (13.5-18.0); LYMPH # 0.8 (1.2-3.4); LYMPH % 25.8 % (20.0-51.0); MEAN CELL VOLUME 90 fl (80.0-100.0); MEAN CORPUSCULAR HEMOGLOBIN 29 pg (27.0-31.0); MEAN CORPUSCULAR HGB CONC 32 g/dl (33.0-37.0); MEAN PLATELET VOLUME 9.9 fl (7.4-10.4); MONO # 0.3 (0.1-0.6); MONO % 9.6 % (1.7-9.3); PLATELET COUNT 175 K/mm3 (130-400); RED BLOOD COUNT 3.73 M/mm3 (4.20-5.60); REDCELL DISTRIBUTION WIDTH-CV 13.7 % (11.5-14.5)
[2020-10-08 10:03] LABS: HEMATOCRIT 33.4 % (42.0-52.0)
[2020-10-08 10:08] LABS: CALCIUM 8.6 mg/dL (8.4-10.2); CREATININE, serum 3.75 (0.66-1.25); POTASSIUM 3.9 mmol/L (3.4-5.0)
[2020-10-08 11:28] VITALS: BP 182/97; PULSE 71; TEMP 98
--- NOTE | 2020-10-08 11:30 | NUR ---
Patient is doing well. He had some clear liquids and was happier afterwards. He finally agreed to getting his blood drawn. Will speak with Hospitalist about changing diet back to [facility]. No other changes at this time. Call light within reach. Denies nausea and pain.
[2020-10-08 16:17] VITALS: BP 179/88; PULSE 66; TEMP 98.1
--- NOTE | 2020-10-08 18:30 | NUR ---
Patient is doing better. He had regular food for supper. Continues to be without pain or nausea. He needs a urine sample but patient stated he can not void into a urinal or hat. No other changes at this time. Call light within reach.
[2020-10-08 19:38] VITALS: BP 158/70; PULSE 75; TEMP 98.3
[2020-10-09 00:25] VITALS: BP 160/79; PULSE 59; TEMP 97.8
[2020-10-09 04:46] VITALS: BP 151/70; PULSE 58; TEMP 98.3
[2020-10-09 06:35] LABS: BASO % 0.8 % (0.0-2.0); EOS # 0.3 (0.0-0.7); EOS % 7.1 % (0-4.0); GRAN # 2.1 (1.4-6.5); GRAN % 59.1 % (42.2-75.2); HEMATOCRIT 34.8 % (42.0-52.0); HEMOGLOBIN 11.3 g/dl (13.5-18.0); LYMPH # 0.8 (1.2-3.4); LYMPH % 23.4 % (20.0-51.0); MEAN CELL VOLUME 89 fl (80.0-100.0); MEAN CORPUSCULAR HEMOGLOBIN 29 pg (27.0-31.0); MEAN CORPUSCULAR HGB CONC 33 g/dl (33.0-37.0); MEAN PLATELET VOLUME 10.3 fl (7.4-10.4); MONO # 0.3 (0.1-0.6); MONO % 9.3 % (1.7-9.3); PLATELET COUNT 198 K/mm3 (130-400); REDCELL DISTRIBUTION WIDTH-CV 13.7 % (11.5-14.5)
[2020-10-09 06:49] LABS: CALCIUM 8.7 mg/dL (8.4-10.2); CREATININE, serum 3.6 (0.66-1.25); POTASSIUM 4.2 mmol/L (3.4-5.0)
[2020-10-09 08:25] VITALS: BP 133/60; PULSE 68; TEMP 98.1
--- NOTE | 2020-10-09 08:30 | NUR ---
Patient in bed resting. Alert and oriented x3. Assessment complete. Denies pain at this time. Patient up to recliner early this AM. Denies further needs at this time.
[2020-10-09] MEDS ORDERED: IMDUR 60MG60 MG/TAB PO (09:40)
[2020-10-09] MEDS ORDERED: APRESOLINE50 MG PO (09:40)
[2020-10-09] MEDS ORDERED: LASIX 40MG TABL40 MG PO (09:41)
[2020-10-09] MEDS ORDERED: PROTONIX 40MG T40 MG PO (09:42)
--- NOTE | 2020-10-09 11:50 | NUR ---
Discharge education provided to patient. Educated on medication changes and when to call provider. Patient educated on follow up appointments and when to call provider. INT to left hand discontinued; catheter tip intact. Denies further needs at this time.
--- NOTE | 2020-10-09 11:58 | NUR ---
Patient out by wheelchair with surgical staff.
--- NOTE | 2020-10-09 12:52 | NUR ---
Division Controller attended clinical rounds with the team and patient to discharge home today. SW met with patient following rounds and patient states he is ready to go home and is going to call his ride now.
== END 2020-10-09 11:58 | disposition home or self-care (01) ==
LOC: COL.ER 11:05 → MEDICAL 13:32
PROVIDERS: Nurse Practitioner Primary Care; Physician Assistant; ADMIT Internal Medicine
DX: K92.1 Melena (principal); K21.9 Gastro-esophageal reflux disease without esophagitis; K29.30 Chronic superficial gastritis without bleeding; I50.21 Acute systolic (congestive) heart failure; I13.0 Hypertensive heart and chronic kidney disease with heart failure and stage 1 through stage 4 chronic kidney disease, or unspecified chronic kidney disease; N18.30 Chronic kidney disease, stage 3 unspecified; N17.9 Acute kidney failure, unspecified; K25.9 Gastric ulcer, unspecified as acute or chronic, without hemorrhage or perforation; K57.30 Diverticulosis of large intestine without perforation or abscess without bleeding; K64.1 Second degree hemorrhoids; J45.909 Unspecified asthma, uncomplicated; D72.819 Decreased white blood cell count, unspecified; E66.9 Obesity, unspecified; M17.10 Unilateral primary osteoarthritis, unspecified knee; F32.9 Major depressive disorder, single episode, unspecified; F41.9 Anxiety disorder, unspecified; F39 Unspecified mood [affective] disorder; F10.10 Alcohol abuse, uncomplicated; F17.210 Nicotine dependence, cigarettes, uncomplicated; Z91.048 Other nonmedicinal substance allergy status; Z79.899 Other long term (current) drug therapy; Z79.01 Long term (current) use of anticoagulants; Z79.891 Long term (current) use of opiate analgesic; Z83.3 Family history of diabetes mellitus; Z80.9 Family history of malignant neoplasm, unspecified
CPT/HCPCS: 99232-AI; 99239; G0378; J1644; J1940; J2405; J2704

== ENCOUNTER 2021-03-23 08:50 | Observation (INO) | payer MEDICARE, MEDICAID ==
[~2021-03-23] VITALS: Ht 177.8 cm; Wt 136.4 kg
[~2021-03-23 08:50] MED LIST changes: +FLEXERIL 1010 MG/TAB PO; +IMDUR 60MG60 MG/TAB PO; +LASIX 40MG TABL40 MG PO; +PROTONIX 40MG T40 MG PO; +TYLENOL W/COD1 UDTAB PO
[2021-03-23 09:25] LABS: BASO % 0.6 % (0.0-2.0); EOS # 0.2 (0.0-0.7); EOS % 4.3 % (0-4.0); GRAN # 3.3 (1.4-6.5); GRAN % 69.7 % (42.2-75.2); HEMOGLOBIN 10.8 g/dl (13.5-18.0); LYMPH # 0.8 (1.2-3.4); MEAN CELL VOLUME 87 fl (80.0-100.0); MEAN CORPUSCULAR HEMOGLOBIN 28 pg (27.0-31.0); MEAN CORPUSCULAR HGB CONC 33 g/dl (33.0-37.0); MEAN PLATELET VOLUME 9.6 fl (7.4-10.4); MONO # 0.4 (0.1-0.6); MONO % 9.2 % (1.7-9.3); PLATELET COUNT 261 K/mm3 (130-400); RED BLOOD COUNT 3.81 M/mm3 (4.20-5.60); REDCELL DISTRIBUTION WIDTH-CV 12.7 % (11.5-14.5)
[2021-03-23 09:29] LABS: HEMATOCRIT 33.1 % (42.0-52.0)
[2021-03-23 09:35] LABS: BILIRUBIN,TOTAL 0.4 mg/dL (0.0-1.0); CALCIUM 8.9 mg/dL (8.4-10.2); CREATININE, serum 2.27 (0.66-1.25); POTASSIUM 3.5 mmol/L (3.4-5.0); TOTAL PROTEIN 8.5 gm/dL (6.4-8.2)
[2021-03-23 09:53] LABS: TROPONIN-I 0.045 ng/mL (0.000-0.035)
[2021-03-23 16:11] LABS: CALCIUM 8.8 mg/dL (8.4-10.2); CREATININE, serum 2.18 (0.66-1.25); POTASSIUM 3.6 mmol/L (3.4-5.0)
[2021-03-23 16:35] LABS: TROPONIN-I 6 HR POST INITIAL 0.036 ng/mL (0.000-0.034)
--- NOTE | 2021-03-23 22:59 | NUR ---
PT RESTING IN RECLINER. EVENING MEDICATIONS GIVEN. PT HAS EDEMA TO BLE. PT HAS SEVERE, CONSTANT, STABBING PAIN TO THE NECK, SHOULDERS, AND BACK. THIS PAIN IS MOSTLY ON THE LEFT SIDE OF HIS BODY AND LIMIT THE ROM IN HIS L ARM. PT DENIES ANY NEEDS AT THIS TIME. WILL CONTINUE TO MONITOR.
[2021-03-24 00:19] VITALS: BP 114/49; PULSE 51; TEMP 97.5
[2021-03-24 04:34] VITALS: BP 128/71; PULSE 102; TEMP 97.6
[2021-03-24 04:57] VITALS: BP 158/79; PULSE 49; TEMP 97.6
--- NOTE | 2021-03-24 06:27 | NUR ---
PT EAGER TO MOVE IV FROM R AC DUE TO IT BEING UNCOMFORTABLE. THIS NURSE EXPLAINED THAT IT MAY BE BETTER JUST TO WAIT AND SEE IF HE IS DISCHARGED TODAY BEFORE TRYING TO START A NEW SPOT. PT STATES HE DID NOT GET MUCH SLEEP LAST NIGHT DUE TO THE IV BOTHERING HIM. PT DENIES ANY NEEDS AT THIS TIME. WILL CONTINUE TO MONITOR.
[2021-03-24 07:18] LABS: BASO % 0.5 % (0.0-2.0); EOS # 0.2 (0.0-0.7); EOS % 3.9 % (0-4.0); GRAN # 2.9 (1.4-6.5); GRAN % 70.9 % (42.2-75.2); HEMOGLOBIN 10.6 g/dl (13.5-18.0); LYMPH # 0.7 (1.2-3.4); LYMPH % 16.4 % (20.0-51.0); MEAN CELL VOLUME 88 fl (80.0-100.0); MEAN CORPUSCULAR HEMOGLOBIN 29 pg (27.0-31.0); MEAN CORPUSCULAR HGB CONC 33 g/dl (33.0-37.0); MEAN PLATELET VOLUME 9.6 fl (7.4-10.4); MONO # 0.3 (0.1-0.6); MONO % 8.1 % (1.7-9.3); PLATELET COUNT 258 K/mm3 (130-400); RED BLOOD COUNT 3.67 M/mm3 (4.20-5.60); REDCELL DISTRIBUTION WIDTH-CV 12.5 % (11.5-14.5)
[2021-03-24 07:19] LABS: HEMATOCRIT 32.3 % (42.0-52.0)
[2021-03-24 08:05] VITALS: BP 157/75; PULSE 63; TEMP 97.6
[2021-03-24] MEDS ORDERED: PREDNISONE20 MG PO (10:04)
[2021-03-24] MEDS ORDERED: PRINIVIL10 MG PO (10:07)
[2021-03-24] MEDS ORDERED: PROTONIX 40MG T40 MG PO (10:08)
[2021-03-24 11:41] VITALS: BP 124/63; PULSE 59; TEMP 97.8
--- NOTE | 2021-03-24 12:20 | NUR ---
Discharge paperwork and instructions reviewed with patient. IV dc'd from [facility] catheter tip intact. Pt wheeled out at this time.
== END 2021-03-24 12:42 | disposition home or self-care (01) ==
LOC: COL.ER 08:50 → MEDICAL 13:36
PROVIDERS: Personal Emergency Response Attendant; ADMIT Internal Medicine
DX: M25.512 Pain in left shoulder (principal); N18.4 Chronic kidney disease, stage 4 (severe); I13.0 Hypertensive heart and chronic kidney disease with heart failure and stage 1 through stage 4 chronic kidney disease, or unspecified chronic kidney disease; I50.20 Unspecified systolic (congestive) heart failure; R74.8 Abnormal levels of other serum enzymes; J45.909 Unspecified asthma, uncomplicated; R91.1 Solitary pulmonary nodule; E66.01 Morbid (severe) obesity due to excess calories; I42.8 Other cardiomyopathies; W19.XXXA Unspecified fall, initial encounter; F17.210 Nicotine dependence, cigarettes, uncomplicated; Z79.899 Other long term (current) drug therapy; Z83.3 Family history of diabetes mellitus
CPT/HCPCS: G0378; J1644; J2270; J2405